=== PATIENT | female | born 1950 | race African-American/Black ===

== ENCOUNTER → 2017-09-23 | Outpatient (CLI) | payer OTHER | END | disposition home or self-care (01) | LOC: MAMMO 13:11 | DX: Z12.31 Encounter for screening mammogram for malignant neoplasm of breast (principal); J40 Bronchitis, not specified as acute or chronic; R04.2 Hemoptysis; Z78.0 Asymptomatic menopausal state | CPT/HCPCS: 71046; 77063; 77067 ==

== ENCOUNTER → 2017-12-27 | Day surgery (SDC) | payer OTHER ==
[~2017-12-27] MED LIST: ASPI-630 PO; CHOL500016 PO; CYAN10005 PO; IV RINGERS,LACTATED 1000ML 1,000 ML IV SCH; LEVO200T5 PO; LEVO500T8 PO; LIDOCAINE 1% PF 2 ML VIAL. ID PRN; LIDOCAINE 2% PF Vial for OR 5 ML VIAL. ONE; METR500T8 PO; MORPHINE SULFATE 2 MG/ML VIAL. IV PRN; ONDANSETRON PF 4 MG/2 ML VIAL. IV PRN; PRAV20TA2 PO; PROCHLORPERAZINE 10 MG/2 ML VIAL. IV PRN; PROPOFOL 40 ML IV ONE; TRIA1TAB2 PO; VIT1TABL62 PO; ZOST1940 SQ; fentaNYL PF VIAL 100 MCG/2 ML VIAL IV PRN
--- NOTE | 2017-12-27 09:32 | PDOC1 ---
HISTORY & PHYSICAL H&P Queen Tita Berkowitz [id number] 1950 12/21/2017 12:00 PM 05/16 [facility], [facility] PATIENTS COM[facility] FIRST [address] [place], [place] [id number] . [phone] Patient: Queen Sho Date of : 1950 Date: 12/21/2017 12:00 PM Visit Type: Office Visit This 67 year old female presents for gi bleeding. History of Present Illness: 1. gi bleeding Queen Sho is a 67 year old female who presents for evaluation of gi bleeding. The patient reports FOBT positive. There is history of polyp and Patient has been on Aspirin a day.. She is not experiencing abdominal pain, constipation, diarrhea, rectal pain, nausea or weight loss. The patient's pertinent procedure include: Colonoscopy on 04/03/2015 with result of Imp: One 3 mm poylp in the descending colon(bx). The examination was otherwise normal on direct and retroflexion views. BX: hyperplastic polyp. 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 The mapped diagnosis code was Toxic diffuse goiter without mention of thyrotoxic, 242.00, added by Berta Daly, with responsible provider . Onset date 08/01/2009; last addressed on 08/01/2009. Benign essential hypertension 08/01/2009 Y Mapped from [facility] Chronic Conditions table on 12/03/2013 by the ICD9 to SNOMED Bulk Mapping Utility. The mapped diagnosis code was Benign essential hypertension, 401.1, added by Berta Daly, with responsible provider . Onset date 08/01/2009; last addressed on . Gallstone 08/01/2009 Y Mapped from [facility] Chronic Conditions table on 12/03/2013 by the ICD9 to SNOMED Bulk Mapping Utility. The mapped diagnosis code was Calculus of gallbladder without mention of cholecy, 574.20, added by Berta Daly, with responsible provider . Onset date 08/01/2009; last addressed on . 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 The mapped diagnosis code was Iatrogenic pituitary disorders, 253.7, added by Berta Daly, with responsible provider . Onset date 08/01/2009; last addressed on . Hypothyroidism 08/01/2009 Y Mapped from [facility] Chronic Conditions table on 2013 by the ICD9 to SNOMED Bulk Mapping Utility. The mapped diagnosis code was Unspecified acquired hypothyroidism, 244.9, added by Berta Daly, with responsible provider . Onset date 08/01/2009; last addressed on 10/06/2012. Pernicious anemia 08/01/2009 Y Mapped from [facility] Chronic Conditions table on by the ICD9 to SNOMED Bulk Mapping Utility. The mapped diagnosis code was Pernicious anemia, 281.0, added by Berta Daly, with responsible provider . Onset date 08/01/2009; last addressed on 07/18/2013. Colonic polyp 06/18/2015 Bilateral impacted cerumen 06/18/2015 History of colon polyps 03/12/2015 Constipation, chronic 03/12/2015 Medications (active prior to today) Medication Name Sig Description Start Date Stop Date Refilled Rx Elsewhere vit O73-havctadpq factor-folic acid cmb#2 500 mcg-20 mg-800 mcg tablet ONE DALIY 10/06/2012 N Vitamin B-12 1,000 mcg tablet take one daily 08/18/2015 N aspirin 81 mg tablet,delayed release take 1 tablet by oral route every day N pravastatin 20 mg tablet take 1 tablet by ORAL route every evening 07/25/2017 07/25/2017 N Maxzide-25mg 37.5 mg-25 mg tablet TAKE ONE TABLET BY MOUTH ONCE DAILY 201707/25/2017 N cholecalciferol (vitamin D3) 50,000 unit capsule take 1 cap by mouth once a week for 4 months 09/26/2017 N Zostavax (PF) 19,400 unit/0.65 mL subcutaneous suspension inject 0.65 milliliter by subcutaneous route once 11/25/2017 N LEVOTHYROXIN 200MCG TAB TAKE 1 TABLET BY MOUTH ONCE DAILY 12/16/2017 12/16/2017 N Medication Reconciliation Medications reconciled today. Medication Reviewed Adherence Medication Name Sig Desc Elsewhere Status taking as directed vit D84-iqmygjpqz factor-folic acid cmb#2 500 mcg-20 mg-800 mcg tablet ONE DALIY N Verified taking as directed Vitamin B-12 1,000 mcg tablet take one daily N Verified taking as directed aspirin 81 mg tablet,delayed release take 1 tablet by oral route every day N Verified taking as directed pravastatin 20 mg tablet take 1 tablet by ORAL route every evening N Verified taking as directed Maxzide-25mg 37.5 mg-25 mg tablet TAKE ONE TABLET BY MOUTH ONCE DAILY N Verified taking as directed cholecalciferol (vitamin D3) 50,000 unit capsule take 1 cap by mouth once a week for 4 months N Verified taking as directed Zostavax (PF) 19,400 unit/0.65 mL subcutaneous suspension inject 0.65 milliliter by subcutaneous route once N Verified taking as directed LEVOTHYROXIN 200MCG TAB TAKE 1 TABLET BY MOUTH ONCE DAILY N Verified Medications (Added, Continued or Stopped today) Start Date Medication Directions PRN Status PRN Reason Instruction Stop Date 02/25/2017 aspirin 81 mg tablet,delayed release take 1 tablet by oral route every day N 09/26/2017 cholecalciferol (vitamin D3) 50,000 unit capsule take 1 cap by mouth once a week for 4 months N 12/16/2017 LEVOTHYROXIN 200MCG TAB TAKE 1 TABLET BY MOUTH ONCE DAILY N 07/25/2017 Maxzide-25mg 37.5 mg-25 mg tablet TAKE ONE TABLET BY MOUTH ONCE DAILY N 07/25/2017 pravastatin 20 mg tablet take 1 tablet by ORAL route every evening N 10/06/2012 vit Q92-gafdlieuj factor-folic acid cmb#2 500 mcg-20 mg-800 mcg tablet ONE DALIY N 08/18/2015 Vitamin B-12 1,000 mcg tablet take one daily N 11/25/2017 Zostavax (PF) 19,400 unit/0.65 mL subcutaneous suspension inject 0.65 milliliter by subcutaneous route once N Allergies: Ingredient Reaction (Severity) Medication Name Comment NO KNOWN ALLERGIES ORDERS: Status Lab Order Time Frame Comments ordered BMP -today ordered CBC w/diff -today ordered Urinalysis -today ordered Lipid Panel -today ordered Hepatic Function Panel -today ordered TSH -today ordered BMP -today ordered CBC w/diff -today ordered Urinalysis -today ordered Lipid Panel -today ordered Hepatic Function Panel -today ordered TSH -today ordered TSH -today ordered TSH 2 Months draw in ordered BMP -today ordered CBC w/diff -today ordered Urinalysis -today ordered Lipid Panel -today ordered Hepatic Function Panel -today ordered Vitamin B12 And Folate -today ordered Hg A1C -today ordered T4 Total -today ordered TSH -today ordered T3 Free -today ordered TSH 2 Months ordered Hep A Ab Today ordered CBC Today ordered URINALYSIS Today ordered T3 Free Today ordered Vitamin B12 Today ordered BMP Today ordered LIPID PANEL Today ordered T4 FREE Today ordered BMP -today ordered TSH+Free T4 -today ordered CBC w/diff -today ordered TSH 3rd Generation -today ordered Vitamin B12 -today ordered Lipid Profile -today ordered LFT -today ordered LFT -today ordered UA/M w/rflx Culture, Routine -today ordered follow-up visit with Adrianna Spence after procedure is done. ordered BMP -today ordered CBC w/diff -today ordered Urinalysis -today ordered Lipid Panel -today ordered Hepatic Function Panel -today ordered TSH -today ordered Vitamin B12 And Folate -today ordered BASIC METABOLIC PANEL ordered HEPATIC FUNCTION PANEL ordered FOLATE, SERUM ordered URINALYSIS, COMPLETE ordered CBC (INCLUDES DIFF/PLT) ordered LIPID PANEL ordered TSH ordered VITAMIN B12 ordered CMP -today ordered TSH -today ordered BMP -today ordered Vitamin B12 -today ordered Cbc With Differntial -today ordered follow-up visit with Isacc Díaz MD upon completion of work-up upon completion of work-up ordered BMP -today ordered CBC w/diff -today ordered Urinalysis -today ordered Lipid Panel -today ordered Hepatic Function Panel -today ordered TSH -today ordered Hg A1C -today ordered Microalbumin, Random Urine -today ordered Vitamin D, 25-Hydroxy -today ordered Vitamin D 25-hydroxy 4 Months ordered Hemoglobin A1c 01/13/2018 ordered CMP 01/13/2018 result received Occult Blood, Fecal, IA ordered Colonoscopy -today ordered EGD -today ordered follow-up visit with Isacc Díaz MD upon completion of work-up upon completion of work-up System Neg/Pos Details Constitutional Negative Chills, Fever and Malaise. ENMT Negative Sore throat. Eyes Negative Double vision. Respiratory Negative Dyspnea and Wheezing. Cardio Negative Chest pain and Irregular heartbeat/palpitations. GI Positive See HPI. GI Negative See HPI. Negative Dysuria and Hematuria. Endocrine Negative Cold intolerance and Heat intolerance. Psych Negative Anxiety. Integumentary Negative Hives and Rash. MS Negative Joint pain. Ulises/Lymph Negative Easy bleeding and Easy bruising. Allergic/Immuno Negative Food allergies. Vital Signs Time BP mm/Hg Pulse /min Resp /min Temp F Ht ft Ht in Ht cm Wt lb Wt kg BMI kg/ m2 BSA m2 O2 Sat% 12:20 PM 128/76 97 16 97.8 5.0 3.00 160.02 224.00 101.605 39.68 2.13 97 Measured By Time Measured by 12:20 PM Analy Swygert PHYSICAL EXAM: Exam Findings Details Constitutional Normal Well developed. Eyes Normal Conjunctiva - Right: Normal, Left: Normal. Sclera - Right: Normal, Left: Normal. Nasopharynx Normal Lips/teeth/gums - Normal. Neck Exam Normal Inspection - Normal. Thyroid gland - Normal. Respiratory Normal Inspection - Normal. Auscultation - Normal. Cardiovascular Normal Regular rate and rhythm. No murmurs, gallops, or rubs. Abdomen Normal Inspection - Normal. Anterior palpation - No guarding. No abdominal tenderness. No hepatic enlargement. No spleen enlargement. No hernia. No Ascites. Skin Normal Inspection - Normal. Extremity Normal No edema. Psychiatric Normal Orientation - Oriented to time, place, person & situation. Appropriate mood and affect. Assessment/Plan # Detail Type Description 1. Assessment Gastrointestinal hemorrhage, unspecified gastrointestinal hemorrhage type (K92.2). Patient Plan schedule colonoscopy and EGD at Plan Orders Further diagnostic evaluations ordered today include(s) Colonoscopy to be performed today and EGD to be performed today. She is to schedule a follow-up visit with Isacc Díaz MD upon completion of work-up. Active Patient Care Team Members Name Contact Agency Type Support Role Relationship Active Date Inactive Date Specialty Cary Chavarria MD Patient provider PCP Family Pract Provider: Isacc Díaz MD 12/21/2017 12:35 PM Cary Chavarria MD, Family Practice; Donta Mcdaniel MD Internal Medicine; Ange Avalos MD, Internal Medicine; Orly Díaz MD Internal Medicine; Isacc Díaz MD, Gastroenterology; Gabriel Delacruz MD, Rheumatology, JTae Kirkpatrick APRN ------ 12/27/17 Patient seen and examined. No change in H&P. ISACC DÍAZ MD Dec 27, 2017 09:32
[2017-12-27 10:05] VITALS: BP 152/82
== END | disposition home or self-care (01) ==
LOC: ENDOS 08:25
PROVIDERS: ATTEND Internal Medicine Gastroenterology
DX: K92.2 Gastrointestinal hemorrhage, unspecified (principal); Z79.82 Long term (current) use of aspirin; Z87.19 Personal history of other diseases of the digestive system; I10 Essential (primary) hypertension; E78.00 Pure hypercholesterolemia, unspecified; E03.9 Hypothyroidism, unspecified; D51.0 Vitamin B12 deficiency anemia due to intrinsic factor deficiency; Z79.899 Other long term (current) drug therapy; E66.9 Obesity, unspecified; Z68.36 Body mass index [BMI] 36.0-36.9, adult; Z90.710 Acquired absence of both cervix and uterus; E05.00 Thyrotoxicosis with diffuse goiter without thyrotoxic crisis or storm; Z98.890 Other specified postprocedural states; Z87.440 Personal history of urinary (tract) infections
CPT/HCPCS: 43235; 45378; J2001; J2704

== ENCOUNTER 2020-10-17 09:48 | Day surgery (SDC) | payer MEDICARE ==
[~2020-10-17] VITALS: Ht 166.4 cm; Wt 107.0 kg
[~2020-10-17 09:48] MED LIST changes: +CYAN-25 PO; -CYAN10005 PO; +HYDROmorphone 2 MG/ML VIAL IVP PRN; -LIDOCAINE 1% PF 2 ML VIAL. ID PRN; -LIDOCAINE 2% PF Vial for OR 5 ML VIAL. ONE; +METR-34 PO; -METR500T8 PO; -MORPHINE SULFATE 2 MG/ML VIAL. IV PRN; +MORPHINE SULFATE 2 MG/ML VIAL. IVP PRN; -ONDANSETRON PF 4 MG/2 ML VIAL. IV PRN; -PROCHLORPERAZINE 10 MG/2 ML VIAL. IV PRN; +PROCHLORPERAZINE 10 MG/2 ML VIAL. IVP PRN; -PROPOFOL 40 ML IV ONE; +TRAM50TA PO; -fentaNYL PF VIAL 100 MCG/2 ML VIAL IV PRN; +fentaNYL PF VIAL 100 MCG/2 ML VIAL IVP PRN
[2020-10-17] MEDS ORDERED: ceFAZolin 2GM PREMIX 2 GM/50 ML BAG IV ONE (10:00)
[2020-10-17] MEDS ORDERED: ROPIVacaine 0.5% PF 20 ML VIAL. ONE (10:17)
[2020-10-17] MEDS ORDERED: MIDAZOLAM HCL/PF 2 MG/2 ML VIAL. ONE (10:17)
[2020-10-17 10:26] VITALS: BP 170/80
[2020-10-17] MEDS ORDERED: DEXAMETHASONE SOD PHOS 4 MG/ML VIAL ONE (10:45)
[2020-10-17] MEDS ORDERED: PROPOFOL 10 MG/ML (20ML) VIAL. IV ONE ×2 (10:45→13:51)
[2020-10-17] MEDS ORDERED: LIDOCAINE 2% PF 5 ML VIAL. ONE (10:45)
[2020-10-17] MEDS ORDERED: ONDANSETRON PF 4 MG/2 ML VIAL. ONE (10:46)
[2020-10-17] MEDS ORDERED: ROCURONIUM 50 MG/5 ML VIAL. ONE (11:04)
[2020-10-17] MEDS ORDERED: EPINEPHrine VIAL 30 MG/30 ML VIAL ONE (11:27)
[2020-10-17] MEDS ORDERED: SUCCINYLCHOLINE 200 MG/10 ML VIAL. ONE (11:53)
[2020-10-17] MEDS ORDERED: fentaNYL PF VIAL 100 MCG/2 ML VIAL ONE (11:54)
[2020-10-17] MEDS ORDERED: GLYCOPYRROLATE 1 MG/5 ML VIAL. ONE (12:10)
[2020-10-17] MEDS ORDERED: NEOSTIGMINE METHYLSULFATE 5 MG/5 ML SYRINGE. ONE (12:17)
[2020-10-17] MEDS ORDERED: oxyCODONE/APAP 7.5/325 1 TAB TABLET PO ONE (14:30)
[2020-10-17] MEDS ORDERED: LABETALOL 20 MG/4 ML DISP.SYRIN. IVP PRN (14:30)
[2020-10-17] MEDS ORDERED: OXYC1TAB19 PO (14:59)
--- NOTE | 2020-10-17 15:00 | DISCH ---
DISCHARGE INSTRUCTIONS Condition on Discharge Condition on Discharge: Stable Activity After Discharge Activity Instructions for Disc: Other, see below (Fine motor use with arm at side only such as eating writing and typing) Lifting Instructions after Dis: No heavy lifting, No pulling or pushing Diet after Discharge Diet after Discharge: Regular Wound Incision Care Wound/Incision Care: Change dressing (Remove dressing in 2 days may then shower) Community/Resources/Services Services at Discharge: PT EVALUATE & TREAT (Passive range of motion only for 1 month postoperatively due to rotator cuff repair and biceps tenodesis) Contacting the after DC Call your doctor for: Concerns you may have Follow-Up Follow up with: Dr. Holman or Mark 10 days SANDRA HOLMAN MD Oct 17, 2020 15:00
[2020-10-17 15:20] VITALS: BP 147/78
--- NOTE | 2020-10-17 15:27 | PDOC4 ---
Operative Note Operative Note Date of surgery: 10/17/2040 Preoperative diagnosis: Rotator cuff and superior labral tear Postoperative diagnosis: Same with severe labral fraying and full-thickness distal supraspinatus tear and biceps flattening and fraying Operative procedure: Right shoulder arthroscopy arthroscopic rotator cuff repair and biceps tenodesis with extensive labral debridement Surgeon: Manda Assist: Farrukh rabago Anesthesia: General plus scalene block Estimated blood loss: 5 cc Complications: None Operative indications: Please see my preoperative clinic note for detailed operative indications and note that we had reviewed risk benefits postoperative course and possible complications of nonhealing infection nerve or blood vessel damage continued pain to call or other anesthetic complications among others and informed consent was obtained to proceed with surgical evaluation and treatment Operative text: Patient was identified procedure verified patient placed in the supine position on the operating table and after adequate amounts of general anesthesia were administered placed in the decubitus position right side up all bony prominences were well-padded. Right shoulder was examined under anesthesia found to have full range of motion with no instability in the right shoulder was prepped and draped in standard sterile fashion and the right arm placed in arthroscopic arm rodgers with a total of 10 pounds of traction. After timeout was performed patient procedure identified and verified a standard posterior portal was established an anterior portal established using spinal needle localization and the shoulder joint was systematically examined. There was extensive labral fraying and biceps was compromised with significant fraying in the bicipital groove. Rotator cuff was noted to have a full-thickness supraspinatus tear with some retraction. Biceps was tenotomized and labrum was extensively debrided back to stable tissue. Subscapularis insertion caps uloligamentous structures and bare area of the humerus were all noted to be intact and glenohumeral cartilage well preserved. Subacromial space was then entered and bursa was cleared to allow adequate visualization rotator cuff footprint debrided back to stable bleeding bony tissue and a total of 2 juggernaut double loaded anchors were placed medially, sutures were placed in simple fashion and lateral row fixation carried out with a peak lateral row Quatro link knotless anchor. Excellent watertight repair was obtained and the biceps tendon was fixated with a Quatro bolt in the bicipital groove and biceps was well tensioned and contour maintained. Joint was drained of arthroscopic fluid portals closed with subcutaneous Vicryl and nylon suture sterile absorbent dressings were placed patient was placed in an immobilizer and patient was returned to recovery room stable condition having tolerated procedure well. Farrukh rabago was present for the procedure and assisted patient positioning prepping draping assistance with equipment closure and dressings SANDRA BLUM MD Oct 17, 2020 15:27
== END 2020-10-17 16:05 | disposition home or self-care (01) ==
LOC: EDBD → SURG 09:48
PROVIDERS: ATTEND Orthopaedic Surgery
DX: S43.431A Superior glenoid labrum lesion of right shoulder, initial encounter (principal); M75.121 Complete rotator cuff tear or rupture of right shoulder, not specified as traumatic; I10 Essential (primary) hypertension; E78.00 Pure hypercholesterolemia, unspecified; E66.9 Obesity, unspecified; E03.9 Hypothyroidism, unspecified; Z90.710 Acquired absence of both cervix and uterus; Z98.890 Other specified postprocedural states; Z79.899 Other long term (current) drug therapy; Z87.440 Personal history of urinary (tract) infections; Z79.82 Long term (current) use of aspirin; Z88.8 Allergy status to other drugs, medicaments and biological substances; X58.XXXA Exposure to other specified factors, initial encounter; Y93.89 Activity, other specified; Y92.89 Other specified places as the place of occurrence of the external cause; Y99.8 Other external cause status
CPT/HCPCS: 29823; 29827; 64415; A4565; A4930; C1713; J0171; J0330; J0690; J1100; J2250; J2405; J2704; J2710; J2795; J3010; J3490

== ENCOUNTER → 2021-09-22 | Outpatient (CLI) | payer MEDICARE ==
[~2021-09-22] MED LIST changes: -HYDROmorphone 2 MG/ML VIAL IVP PRN; -IV RINGERS,LACTATED 1000ML 1,000 ML IV SCH; -LEVO500T8 PO; +LEVO500T9 PO; -MORPHINE SULFATE 2 MG/ML VIAL. IVP PRN; +OXYC1TAB19 PO; -PROCHLORPERAZINE 10 MG/2 ML VIAL. IVP PRN; -fentaNYL PF VIAL 100 MCG/2 ML VIAL IVP PRN
--- NOTE | 2021-09-22 12:24 | KCIC ---
Examination: MRI of the left knee without contrast HISTORY: History of acute medial meniscus injury, anterior left knee pain COMPARISON: None available TECHNIQUE: Multiplanar, multisequence MR imaging of the left knee without contrast FINDINGS: The anterior cruciate ligament, posterior cruciate ligament appears intact.There is blunting and incr eased signal identified in the body of the medial meniscus with extrusion of the medial meniscus medi ally likely tear of medial meniscus. Lateral meniscus appears intact. The medial collateral ligament appears intact. Lateral collateral ligamentous complex including the fibular collateral ligament, bic eps femoris tendon appears intact. The extensor mechanism appears intact. There is deep fissuring of cartilage identified in the medial, patellofemoral compartments. The medial, lateral retinaculum appe ars intact. Moderate knee joint effusion. Moderate joint space loss medial, lateral compartment femoral compartments IMPRESSION: 1. Tear of the body of the medial meniscus with extrusion of the medial meniscus medially. 2. Grade II chondromalacia medial, patellofemoral compartments. 3. Moderate knee joint effusion. Electronically signed by: Foster Mckeon MD (09/22/2021 12:17 PM) [id number]
== END ==
LOC: KCIC MRI 10:46
PROVIDERS: ATTEND Physician Assistant
DX: S83.242D Other tear of medial meniscus, current injury, left knee, subsequent encounter (principal); M25.462 Effusion, left knee; M25.862 Other specified joint disorders, left knee
CPT/HCPCS: 73721